=== PATIENT | male | born 1975 | race Caucasian/White ===

== ENCOUNTER → 2016-06-29 | Outpatient (CLI) | payer OTHER ==
[~2016-06-29] MED LIST: CPR500T PO; HYDR-33 PO
[2016-06-29 12:22] VITALS: BP 150/95
--- NOTE | 2016-06-29 12:22 | Urgent Care T Sheet Gen (E) ---
Intake General Temperature (Fahrenheit): 98.9 Pulse: 93 Blood Pressure Systolic: 150 Blood Pressure Diastolic: 95 Respirations: 18 SPO2: 98 Chief Complaint: UC Injury Description of Symptoms He comes in today for a laceration left thigh after he cut it with a steel saw this am. It bled some but he states the saw was hot and so it basically cut and burned skin. Tetanus is reported by him to be up to date. He thought he better come in for stitches. bleeding controlled when he arrived. Source: Patient History of Present Illness Onset & Duration: Hours Timing: Still present Severity: Moderate Recent Trauma: Yes (cut left thigh with a saw) Allergies: Coded Allergies: No Known Allergies (Unverified Allergy, Unknown, 05/28/15) Home Meds Active Scripts Hydrocodone/Acetaminophen (ED- [place] 5/325mg #6)1 Each Tablet1-2 Tab PO Q 4-6 hrs PRN PAIN #20 TAB Prov:DONNA SELBY MD 05/28/15 Ciprofloxacin HCl (Cipro)500 Mg Tablet1 Tab PO BID #20 TAB Prov:DONNA SELBY MD 05/28/15 Respiratory Constitutional Symptoms: No syptoms reported Skin: Other (3 inch left thigh laceration linear but wide with fatty tissue showing) All Other Systems Reviewed Remaining Systems: All other systems reviewed with negative findings Past Agwbdoi-Agqhvt-Hflolc Hx Patient's Social History Alcohol Use: Denies Use Recreational Drug Use: Denies Use Smoking Status: Never smoker Recent foreign travel: No Surgeries/Hospitalizations Hospitalization/Surgery Hx: NO SURGERIES OR HOSPITALIZATIONS Respiratory Respiratory History: None Cardiovascular Cardiovascular History: None Reproductive System Sexually Transmitted Diseases: No Gastrointestinal GI/Endocrine History: None Diabetes Diabetes: No HEENT Impaired Vision: None Hearing Impaired: None Integumentary Integumentary History: Other, see comments Comment: PT SMASHED RT THUMB WHILE SPLITTING WOOD Physical Exam Physical Exam General Appearance: WD/WN No apparent distress Skin Exam: Other (left thigh laceration 3 inches long and wide open 5 cm with fatty tissue present- no bleeding, some burnt edges noted from the saw cut, ) Procedures/Interventions Laceration Repair : Location Modifier: Left Wound Location: Thigh Type: Laceration Wound Appearance: Unapproximated (wide open with burnt edges noted and pt reports cleaning it with peroxide prior to arrival- no bleeding really, fatty tissue exposed no muscle ) Laceration Depth: Subcutaneous Lesion Length: 3 (3 inches in length) Laceration Explored: Clean Irrigated w/Saline (mls): 20 (20 mls of sterile saline) Skin Prep Used: Betadine Anesthesia: 1% Lidocaine Volume of Anesthetic (mls): 10 Wound Debridement: Extensive (irrigated with saline- no debri seen no foreign body) Suture: Prolene (4-0 PS-2 [address] externally- interrupted sutures) , Vicryl (4-0 -[address] inside laceration) Suture Size: 4-0 Number of Sutures: 20 (20 total sutures4 outside) Closure Supplies: Steri Strips 1/2 inch Layer Closurer: 2 Number of Deep Layer Sutures: 4 Sterile Dressing Applied: Yes Progress Suture repair done under sterile technique- pt tolerated procedure well- Sandra Blood [employer] assisted- minimal bleeding, wound closed very well, still noted dark burnt edges of skin but wound was cleaned extensively and irrigated- no debri or foreign body seen. Wound was well approximated and closed nicely with 4 internal sutures and 16 outer sutures- steri strips applied as well as non adherent dressing and coban dressing He was given explicit instructions for wound care. Keep covered avoid stress or pressure on the wound home to rest and elevate leg He is aware if he returns to work it could pull open Suture removal 10 days. Monitor for S&S infection- drainage pain etc. He agrees to plan of care. Departure Urgent Care Impression Chief Complaint: Injury Impression: Primary Impression: Laceration of thigh, left Qualified Code: S71.112A - Laceration without foreign body, left thigh, initial encounter Departure Disposition: 01 HOME OR SELF-CARE Condition: Stable Additional Instructions: Tylenol or ibuprofen for pain rest elevate may use ice if needed Wound care instructions given Suture removal in 10 days F/U PCP as needed He agrees to plan of care See suture note for more details He is up to date on tetanus shot End of report . JANESSA LARSEN APRN () Jun 29, 2016 12:22
== END ==
LOC: MHUC 10:55
PROVIDERS: ATTEND Nurse Practitioner
DX: S71.112A Laceration without foreign body, left thigh, initial encounter (principal); W45.8XXA Other foreign body or object entering through skin, initial encounter
CPT/HCPCS: 12004; 99213